=== PATIENT | female | born 1945 | race African-American/Black ===

== ENCOUNTER 2016-11-05 18:29 | Emergency (ER) | payer MEDICARE, MEDICAID ==
[2016-11-05] MEDS ORDERED: ACETAZOLAMIDE SODIUM INJ 500 MG VIAL IV ONE (18:50)
--- NOTE | 2016-11-05 19:17 | ER Document Report ---
ED Medical Screen (RME) - General Stated Complaint: EYE ISSUE/PHYSICIAN REFERRED FOR IV FLUID Time seen by provider: 19:12 Mode of Arrival: Wheelchair Information source: Patient Notes: 71-year-old female was found to have intraocular pressure of 58 in the right eye by dr. Garcia today and is unable to see out of the eye. Dr. Garcia sent to the emergency room for Diamox 500 mg IV. He wants the pressure measured 45 minutes later and it is less than 30 she can follow-up in the office in the morning if it's greater than 30 she needs to be transferred to [facility]. Drops were started at 5 pm today which did not help. Spoke with Reji rocky chu who said that she does not need an immediate bed to put her as pavel level 2. I have greeted and performed a rapid initial assessment of this patient. A comprehensive ED assessment, evaluation of the patient, analysis of test results , and completion of the medical decision making process will be conducted by additional ED providers. - Related Data Allergies/Adverse Reactions: Iodine and Iodide Containing Produc Allergy (Verified 11/05/16 19:13) Physical Exam - Vital signs Vitals: Temp Pulse Resp BP Pulse Ox 98.0 F 66 16 124/65 97 11/05/16 18:58 11/05/16 18:58 11/05/16 18:58 11/05/16 18:58 11/05/16 18:58 Course - Vital Signs Vital signs: Temp Pulse Resp BP Pulse Ox 98.0 F 66 16 124/65 97 11/05/16 18:58 11/05/16 18:58 11/05/16 18:58 11/05/16 18:58 11/05/16 18:58
--- NOTE | 2016-11-05 20:19 | ER Document Report ---
ED Eye Complaint - General Chief Complaint: Eye Problem Stated Complaint: EYE ISSUE/PHYSICIAN REFERRED FOR IV FLUID Time seen by provider: 20:19 Mode of Arrival: Wheelchair Information source: Patient TRAVEL OUTSIDE OF THE U.S. IN LAST 30 DAYS: No - HPI Patient complains to provider of: decreased vision in right eye Onset: Last week Eye location: Right Injury: No Quality of pain: Pressure Severity: Mild Pain Level: 2 Associated symptoms: Decreased vision Notes: Patient is a 71-year-old female who was sent to the emergency room by claim processing specialist for decreased vision in right eye that's been worsening over the past week, patient was evaluated at an urgent care and recommended to go to the emergency room proximally one week ago, however she waited to go see the claim processing specialist in the office today, who sent her to the emergency room requesting that she received 500 mg of IV Diamox, and have her intraocular pressures repeated approximate 45 minutes after receiving this, as her intraocular pressures are 58 in his office, he was tried to place eyedrops and patient's eye to bring the pressure down but that has not helped, patient does report decreased vision in the right eye, stating that she can see shadows only - Related Data Allergies/Adverse Reactions: Iodine and Iodide Containing Produc Allergy (Verified 11/05/16 19:13) Past Medical History - General Information source: Patient - Social History Smoking Status: Current Every Day Smoker Chew tobacco use (# tins/day): No Frequency of alcohol use: None Drug Abuse: None Family History: Reviewed & Not Pertinent Patient has suicidal ideation: No Patient has homicidal ideation: No Renal/ Medical History: Denies: Hx Peritoneal Dialysis Review of Systems - Review of Systems Constitutional: No symptoms reported EENT: See HPI Cardiovascular: No symptoms reported Respiratory: No symptoms reported Gastrointestinal: No symptoms reported Genitourinary: No symptoms reported Female Genitourinary: No symptoms reported Musculoskeletal: No symptoms reported Skin: No symptoms reported Hematologic/Lymphatic: No symptoms reported Neurological/Psychological: No symptoms reported -: Yes All other systems reviewed and negative Physical Exam - Vital signs Vitals: Temp Pulse Resp BP Pulse Ox 98.0 F 66 16 124/65 97 11/05/16 18:58 11/05/16 18:58 11/05/16 18:58 11/05/16 18:58 11/05/16 18:58 Interpretation: Normal - General General appearance: Appears well In distress: None - HEENT Head: Normocephalic, Atraumatic Eyes: Other - Patient with bilateral cataracts, decreased vision in the right eye, stating she can only see shadows, is unable to count fingers approximately 1 foot from her face Extraocular movements intact: Yes Eyelashes: Normal Notes: - General General appearance: Appears well, Alert In distress: None - HEENT Head: Normocephalic, Atraumatic Extraocular movements intact: Yes Eyelashes: Normal Pupils: PERRL - Respiratory Respiratory status: No respiratory distress - Cardiovascular Rhythm: Regular - Abdominal Inspection: Normal - Back Back: Normal - Extremities General upper extremity: Normal inspection General lower extremity: Normal inspection - Neurological Neuro grossly intact: Yes Orientation: AAOx4 [place] Coma Scale Eye Opening: Spontaneous [place] Coma Scale Verbal: Oriented Shelia Coma Scale Motor: Obeys Commands [place] Coma Scale Total: 15 - Psychological Associated symptoms: Normal affect, Normal mood - Skin Skin Temperature: Warm Skin Moisture: Dry Skin Color: Normal Course - Re-evaluation Re-evalutation: 11/05/16 22:55 Patient reports feeling much better, her vision has actually improved she was able to count fingers that were approximate 1 foot from her face, intraocular pressures were measured using a Se-Pen and now measures 16, 17, 16 on 3 separate measurements, I placed a call back to the claim processing specialist, Dr. Lopez who would like patient to follow-up with him in the office first thing in the morning at 9 AM, place the drops in her eye one more time tonight and one more time in the morning, this plan was discussed with patient at bedside who acknowledges understanding and agreement - Vital Signs Vital signs: Temp Pulse Resp BP Pulse Ox 98.5 F 68 16 125/65 98 11/05/16 23:57 11/05/16 23:57 11/05/16 23:57 11/05/16 23:57 11/05/16 23:57 Discharge - Discharge Clinical Impression: Pain, eye, right Condition: Stable Disposition: HOME, SELF-CARE Instructions: Eyedrop Use ([facility]) Additional Instructions: Follow-up with the claim processing specialist, Dr. Garcia at 9:00 in the morning. He is expecting you in his office. He recommend to put the eyedrops and your eye one more time tonight and one more time in the morning prior to seeing him. Return to the emergency room immediately if symptoms worsen or any additional concerns. Referrals: ALESHA THOMAS MD [Primary Care Provider] - Follow up as needed
[2016-11-06] VITALS: BP 125/65
== END 2016-11-05 23:57 | disposition home or self-care (01) ==
LOC: ER 18:29
DX: H57.11 Ocular pain, right eye (principal); H26.9 Unspecified cataract; H54.61 Unqualified visual loss, right eye, normal vision left eye; F17.200 Nicotine dependence, unspecified, uncomplicated
CPT/HCPCS: 99283; 96374; J1120

== ENCOUNTER 2016-12-20 09:54 | Day surgery (SDC) | payer MEDICARE, MEDICAID ==
[~2016-12-20 09:54] MED LIST: BUPIVACAINE HCL 0.75% INJ/PF (7.5 MG/1 ML) 10 ML SDV ONE; CHONDR SU A NA/HYALUR INTRAOC KIT (SURGICARE) ONE; HYALURONIDASE INJ 150 UNIT/1 ML VIAL ONE; KETOROLAC TROMETHAMINE 0.45% 4 DROP/0.4 ML DROPERETTE OS PRN; LIDOCAINE 2% INJ-PF (20 MG/ML) 10 ML AMPUL ONE; PHENYLEPHRINE/KETOROLAC 1%-0.3% 4 ML VIAL ONE; TOBRAMYCIN SULFATE/DEXAMETH OPH OINTMENT 3.5 GM ONE
[2016-12-20] MEDS: TETRACAINE HCL 0.5% OPH SOLN 2 ML OS PRN ×3 (10:20→11:08)
[2016-12-20] MEDS: BESIFLOXACIN HCL 0.6% OPH SUSP 5 ML BOTTLE OS PRN ×3 (10:21→11:51)
[2016-12-20] MEDS: CYCLOPENTOLATE 0.2%/PHENYLEPHRINE 1% OPH SOLN 2 ML OS PRN ×3 (10:21→10:45)
[2016-12-20] MEDS: TROPICAMIDE 1% OPH SOLN 3 ML OS PRN ×3 (10:21→10:45)
[2016-12-20] MEDS ORDERED: TRYPAN BLUE 0.06 % OPH SOLN 0.5 ML DISP.SYRIN ONE (10:49)
[2016-12-20] MEDS ORDERED: FENTANYL CITRATE INJ/PF 100 MCG/2 ML AMPUL ONE (10:53)
[2016-12-20] MEDS ORDERED: MIDAZOLAM 2 MG/2 ML INJ ONE (10:53)
[2016-12-20] MEDS ORDERED: LIDOCAINE 2% INJ-PF (20 MG/ML) 10 ML AMPUL ONE (11:09)
[2016-12-20] MEDS ORDERED: CHONDR SU A NA/HYALUR SOD 0.5 ML DISP.SYRIN ONE (11:29)
--- NOTE | 2017-01-02 09:23 | [facility] OPERATIVE REPORT E ---
[facility] Operative Report NAME: ANN ROYAL AGE: 71Y DATE OF SURGERY: 12/20/2016 ROOM: PREOPERATIVE DIAGNOSIS: Mature cataract of left eye. POSTOPERATIVE DIAGNOSIS: Mature cataract of left eye. OPERATION: Complex cataract extraction with use of trypan blue dye due to density of lens and poor visualization of the anterior capsule. SURGEON: MARIANO MADRIGAL M.D. ANESTHESIA: Topical with retrobulbar block. PROCEDURE: After obtaining appropriate consent, the patient's left eye was prepped and draped in sterile fashion as well as the surgeon in a sterile manner and cataract surgery was started. First a paracentesis blade was used to make a small side-port incision. Viscoelastic was used to inflate the anterior chamber. Next a 2.4 mm incision was made with the paracentesis blade. A continuous capsulorrhexis incision was made using a cystotome and Utrata forceps. Following this hydrodissection was carried out to make the lens fully loose and mobile and it was rotated 90 degrees. Following this, a udihki-xgx-jvqtcom technique was used to phacoemulsify the lens with a CDE of 45.67. The remaining cortex was removed with irrigation/aspiration. Provisc was instilled into the capsular bag to inflate the bag. A SN60WF, 19.0 diopter lens was placed. The remaining viscoelastic material was removed with irrigation/aspiration. Following this, a 10-0 nylon suture was used to close the incision and it was found to be watertight. Vigamox was instilled in the eye and a protective shield was placed over the eye. The patient returned to the postoperative recovery in stable condition. Prior to making the capsulorrhexis, trypan blue dye was used to stain the anterior capsule due to poor visualization of the capsule. DICTATING PHYSICIAN: MARIANO MADRIGAL M.D. [id number] PHY#: [id number] ID: [id number] JOB#: [id number] ACCT: [id number] cc:MARIANO MADRIGAL M.D. >
--- NOTE | 2017-01-02 09:23 | [facility] DISCHARGE SUMMARY E ---
[facility] Discharge Summary NAME: ANN ROYAL AGE: 71Y ADMITTED: 12/20/2016 DISCHARGED: 12/20/2016 HOSPITAL COURSE: This is a 71-year-old female who underwent cataract extraction, complex, of the left eye. DIAGNOSIS: Mature cataract, left eye with use of trypan blue dye due to poor visualization due to density of the lens. INDICATIONS: Patient underwent surgery because she was having difficulty seeing distance and up close for reading or watching TV. DISCHARGE INSTRUCTIONS: She should be on a regular diet. No bending at her waist. No heavy lifting. She should use her Besivance, Ilevro, and Durezol at 3 p.m. and 8 p.m. and sleep with a rigid shield. I will see her for her 1 day postoperative tomorrow. DICTATING PHYSICIAN: MARIANO MADRIGAL M.D. [id number] PHY#: [id number] ID: [id number] JOB#: [id number] ACCT: [id number] cc:MARIANO MADRIGAL M.D. >
== END 2016-12-20 12:41 | disposition home or self-care (01) ==
LOC: SC 09:54
PROVIDERS: ATTEND Internal Medicine
PROC: 08RK3JZ Replacement of Left Lens with Synthetic Substitute, Percutaneous Approach (ICD-10-PCS; principal; 2016-12-20 11:00)
DX: H25.89 Other age-related cataract (principal); H40.89 Other specified glaucoma; H20.011 Primary iridocyclitis, right eye; E78.00 Pure hypercholesterolemia, unspecified; M19.90 Unspecified osteoarthritis, unspecified site; I10 Essential (primary) hypertension; I49.9 Cardiac arrhythmia, unspecified; F17.210 Nicotine dependence, cigarettes, uncomplicated; H53.033 Strabismic amblyopia, bilateral; G81.91 Hemiplegia, unspecified affecting right dominant side; Z91.041 Radiographic dye allergy status; Z79.82 Long term (current) use of aspirin
CPT/HCPCS: 66982; V2632; J2250; J3490 ×6; A9270; J3010; J3470; C9447; 142

== ENCOUNTER 2017-01-03 10:16 | Day surgery (SDC) | payer MEDICARE, MEDICAID ==
[~2017-01-03 10:16] MED LIST changes: -BUPIVACAINE HCL 0.75% INJ/PF (7.5 MG/1 ML) 10 ML SDV ONE; -CHONDR SU A NA/HYALUR INTRAOC KIT (SURGICARE) ONE; -HYALURONIDASE INJ 150 UNIT/1 ML VIAL ONE; +KETOROLAC TROMETHAMINE 0.45% 4 DROP/0.4 ML DROPERETTE OD PRN; -KETOROLAC TROMETHAMINE 0.45% 4 DROP/0.4 ML DROPERETTE OS PRN; -LIDOCAINE 2% INJ-PF (20 MG/ML) 10 ML AMPUL ONE; -PHENYLEPHRINE/KETOROLAC 1%-0.3% 4 ML VIAL ONE; -TOBRAMYCIN SULFATE/DEXAMETH OPH OINTMENT 3.5 GM ONE
[2017-01-03] MEDS ORDERED: TRYPAN BLUE 0.06 % OPH SOLN 0.5 ML DISP.SYRIN ONE (10:30)
[2017-01-03] MEDS ORDERED: LIDOCAINE 1% INJ-PF (10 MG/ML) 30 ML SDV ONE (10:31)
[2017-01-03] MEDS ORDERED: CHONDR SU A NA/HYALUR INTRAOC KIT (SURGICARE) ONE (10:31)
[2017-01-03] MEDS ORDERED: EPINEPHRINE INJ/PF 1 MG/1 ML AMPULE ONE (10:31)
[2017-01-03] MEDS: BESIFLOXACIN HCL 0.6% OPH SUSP 5 ML BOTTLE OD PRN ×4 (11:02→12:25)
[2017-01-03] MEDS: TROPICAMIDE 1% OPH SOLN 3 ML OD PRN ×3 (11:02→11:23)
[2017-01-03] MEDS: CYCLOPENTOLATE 0.2%/PHENYLEPHRINE 1% OPH SOLN 2 ML OD PRN ×3 (11:02→11:23)
[2017-01-03] MEDS: TETRACAINE HCL 0.5% OPH SOLN 2 ML OD PRN ×3 (11:03→11:49)
[2017-01-03] MEDS ORDERED: LIDOCAINE 2% INJ (20 MG/ML) 20 ML MDV ONE (11:08)
[2017-01-03] MEDS ORDERED: BUPIVACAINE HCL 0.75% INJ/PF (7.5 MG/1 ML) 10 ML SDV ONE (11:08)
[2017-01-03] MEDS ORDERED: HYALURONIDASE INJ 150 UNIT/1 ML VIAL ONE (11:08)
[2017-01-03] MEDS ORDERED: LIDOCAINE 2% INJ-PF (20 MG/ML) 10 ML AMPUL ONE ×2 (11:10→11:22)
[2017-01-03] MEDS ORDERED: MIDAZOLAM 2 MG/2 ML INJ ONE (11:22)
[2017-01-03] MEDS ORDERED: PROPOFOL INJ 200 MG/20 ML VIAL IV ONE (11:22)
[2017-01-03] MEDS: TOBRAMYCIN SULFATE/DEXAMETH OPH OINTMENT 3.5 GM ONE ×2 (12:25)
--- NOTE | 2017-01-03 20:02 | [facility] OPERATIVE REPORT E ---
[facility] Operative Report NAME: ANN ROYAL AGE: 71Y DATE OF SURGERY: 01/03/2017 ROOM: PREOPERATIVE DIAGNOSIS: MATURE CATARACT, RIGHT EYE. POSTOPERATIVE DIAGNOSIS: MATURE CATARACT, RIGHT EYE. OPERATION: Complex cataract extraction with use of intraocular lens implant and use of trypan blue dye due to poor visualization of the anterior capsule of the right eye. SURGEON: MARIANO MADRIGAL M.D. ANESTHESIA: Topical with retrobulbar block. PROCEDURE: After obtaining appropriate consent, the patient's right eye was prepped and draped in sterile fashion as well as the surgeon in a sterile manner and cataract surgery was started. First a paracentesis blade was used to make a small side-port incision. Viscoelastic was used to inflate the anterior chamber. Next a 2.4 mm incision was made with the paracentesis blade. A continuous capsulorrhexis incision was made using a cystotome and Utrata forceps. Following this hydrodissection was carried out to make the lens fully loose and mobile and it was rotated 90 degrees. Following this, a tetsqs-cgb-gzsaccl technique was used to phacoemulsify the lens with a CDE of 29.17. The remaining cortex was removed with irrigation/aspiration. Provisc was instilled into the capsular bag to inflate the bag. A SN60WF, 17.5 diopter lens was placed. The remaining viscoelastic material was removed with irrigation/aspiration. Following this, a 10-0 nylon suture was used to close the incision and it was found to be watertight. Vigamox was instilled in the eye and a protective shield was placed over the eye. The patient returned to the postoperative recovery in stable condition. Prior to making the capsulorrhexis, trypan blue dye was used to stain the anterior capsule due to density of the lens. DICTATING PHYSICIAN: MARIANO MADRIGAL M.D. [id number] PHY#: [id number] ID: [id number] JOB#: [id number] ACCT: [id number] cc:MARIANO MADRIGAL M.D. >
--- NOTE | 2017-01-03 20:08 | DISCHARGE SUMMARY E ---
Discharge Summary NAME: ANN ROYAL : 1945 AGE: 71Y ADMITTED: 01/03/2017 DISCHARGED: 01/03/2017 This is a 71-year-old female who underwent complex cataract extraction of the right eye. DIAGNOSIS: Mature cataract, right eye, requiring trypan blue dye. She underwent surgery because she was having difficulty recognizing people's faces or to see words on the TV. DISCHARGE INSTRUCTIONS: She is to be on a regular diet. No bending at her waist, no heavy lifting. She is to use Besivance, Ilevro, and Durezol at 3:00 p.m. and 8:00 p.m., and sleep with a rigid shield. I will see her for her 1-day postoperative tomorrow. DICTATING PHYSICIAN: MARIANO MADRIGAL M.D. [id number] PHY#: [id number] ID: [id number] JOB#: [id number] ACCT: [id number] cc:MARIANO MADRIGAL M.D. >
== END 2017-01-03 13:30 | disposition home or self-care (01) ==
LOC: SC 10:16
PROVIDERS: ATTEND Internal Medicine
PROC: 08RJ3JZ Replacement of Right Lens with Synthetic Substitute, Percutaneous Approach (ICD-10-PCS; principal; 2017-01-03 11:30)
DX: H25.89 Other age-related cataract (principal); H40.89 Other specified glaucoma; Z96.1 Presence of intraocular lens; I10 Essential (primary) hypertension; I49.9 Cardiac arrhythmia, unspecified; G81.91 Hemiplegia, unspecified affecting right dominant side; Z79.82 Long term (current) use of aspirin; Z79.899 Other long term (current) drug therapy
CPT/HCPCS: 66982; V2632; J2250; J3490 ×6; A9270; J0171; J2704; J3470; 142

== ENCOUNTER 2020-04-18 23:04 | Inpatient (IN) | payer MEDICARE, MEDICAID ==
[2020-04-19] MEDS ORDERED: ONDANSETRON HCL INJ/PF 4 MG/2 ML SDV IV ONE (00:04)
[2020-04-19] MEDS ORDERED: NORMAL SALINE 1000 ML 1,000 ML IV ONE (00:05)
--- NOTE | 2020-04-19 00:05 | ER Document Report ---
ED Medical Screen (RME) - General Chief Complaint: Abdominal Pain Stated Complaint: CHEST PAIN, DIFFICULTY BREATHING, DISTENDED STOMAC Time Seen by Provider: 04/19/20 00:02 Primary Care Provider: MARI WALLIS MD [Primary Care Provider] - Follow up as needed Mode of Arrival: Wheelchair Information source: Patient Notes: 75-year-old female presenting to the emergency department chief complaint of abdominal swelling, vomiting, constipation. Patient thinks she has a bowel obstruction. She appears jaundiced. She is actively vomiting in triage. She will be taken immediately to a room for full evaluation. I have greeted and performed a rapid initial assessment of this patient. A comprehensive ED assessment and evaluation of the patient, analysis of test results and completion of the medical decision making process will be conducted by additional ED providers. I have specifically instructed the patient or family members with the patient to immediately return to any nursing staff should anything change in the patient's condition or with their chief complaint. TRAVEL OUTSIDE OF THE U.S[place] IN LAST 30 DAYS: No - Related Data Allergies/Adverse Reactions: Iodine and Iodide Containing Produc Allergy (Verified 01/03/17 11:01) Past Medical History - Past Medical History Cardiac Medical History: Reports: Hx Hypertension Denies: Hx Heart Attack Pulmonary Medical History: Denies: Hx Asthma Neurological Medical History: Denies: Hx Cerebrovascular Accident, Hx Seizures Renal/ Medical History: Denies: Hx Peritoneal Dialysis GI Medical History: Denies: Hx Hepatitis, Hx Hiatal Hernia, Hx Ulcer Infectious Medical History: Denies: Hx Hepatitis Past Surgical History: Reports: Hx Hysterectomy. Denies: Hx Mastectomy, Hx Open Heart Surgery, Hx Pacemaker Physical Exam - Vital signs Vitals: Temp Pulse Resp BP Pulse Ox 97.2 F 105 H 20 151/75 H 96 04/18/20 23:46 04/18/20 23:46 04/18/20 23:46 04/18/20 23:46 04/18/20 23:46 Course - Vital Signs Vital signs: Temp Pulse Resp BP Pulse Ox 97.2 F 105 H 20 151/75 H 96 04/18/20 23:46 04/18/20 23:46 04/18/20 23:46 04/18/20 23:46 04/18/20 23:46 Doctor's Discharge - Discharge Referrals: OSUNKOYA,MARI, MD [Primary Care Provider] - Follow up as needed
[2020-04-19 00:48] LABS: ABSOLUTE LYMPHOCYTES (AUTO) 1.5 10^3/uL (0.5-4.7); ABSOLUTE NEUT (AUTO) 5.2 10^3/uL (1.7-8.2); BASOPHILS % (AUTO) 0.6 % (0-2); EOSINOPHILS % (AUTO) 0.1 % (0-6); HEMATOCRIT 47.6 % (36.0-47.0); HEMOGLOBIN 16.8 g/dL (12.0-15.5); LYMPHOCYTES % (AUTO) 19.5 % (13-45); MEAN CORPUSCULAR HGB CONC 35.2 g/dL (32.0-36.0); MEAN CORPUSCULAR VOLUME 91 fl (80-97); MONOCYTES % (AUTO) 12.4 % (3-13); PLATELET COUNT 289 10^3/uL (150-450); RED BLOOD COUNT 5.24 10^6/uL (3.72-5.28); RED CELL DISTRIBUTION WIDTH 19.3 % (11.5-14.0); SEGMENTED NEUTROPHILS % (AUTO) 67.4 % (42-78); TOTAL CELLS COUNTED % (AUTO) 100 %; WHITE BLOOD COUNT 7.8 10^3/uL (4.0-10.5)
--- NOTE | 2020-04-19 00:48 | ER Document Report ---
ED GI/ - General Chief Complaint: Abdominal Pain Stated Complaint: CHEST PAIN, DIFFICULTY BREATHING, DISTENDED STOMAC Time Seen by Provider: 04/19/20 00:02 Primary Care Provider: MARI WALLIS MD [Primary Care Provider] - Follow up as needed Mode of Arrival: Wheelchair Information source: Patient Notes: 04/19/20 00:04 - ED [facility]: [id number] : 1945 Patient Age: 75 pt reports abd has been swollen for 1 week. states hasn't had a BM in a few days. pt vomited x1 dk colored emesis. she states the pain is better after she vomited. ED Medical Screen ([facility] notes - General Chief Complaint: Abdominal Pain Stated Complaint: CHEST PAIN, DIFFICULTY BREATHING, DISTENDED STOMAC Time Seen by Provider: 04/19/20 00:02 Primary Care Provider: MARI WALLIS MD [Primary Care Provider] - Follow up as needed Mode of Arrival: Wheelchair Information source: Patient Notes: 75-year-old female presenting to the emergency department chief complaint of abdominal swelling, vomiting, constipation. Patient thinks she has a bowel obstruction. She appears jaundiced. She is actively vomiting in triage. She will be taken immediately to a room for full evaluation. my notes 75-year-old female arrives POV with chief complaint of abdominal pain vomiting. Patient reports she has had some vomiting today. She did keep down some water and cranberry juice. She also was able to eat some chicken noodle soup by [employer]. She reports she has had some diffuse abdominal pain for 1 week. 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 She says she has not had a bowel movement in a few days as well. She speaks with slow and understandable speech. She is edentulous as well. TRAVEL OUTSIDE OF THE [place] IN LAST 30 DAYS: No - Related Data Allergies/Adverse Reactions: Iodine and Iodide Containing Produc Allergy (Verified 01/03/17 11:01) Past Medical History - General Information source: Patient - Social History Smoking Status: Never Smoker Family History: Reviewed & Not Pertinent Patient has homicidal ideation: No - Past Medical History Cardiac Medical History: Reports: Hx Hypertension Denies: Hx Heart Attack Pulmonary Medical History: Denies: Hx Asthma Neurological Medical History: Denies: Hx Cerebrovascular Accident, Hx Seizures Renal/ Medical History: Denies: Hx Peritoneal Dialysis GI Medical History: Denies: Hx Hepatitis, Hx Hiatal Hernia, Hx Ulcer Infectious Medical History: Denies: Hx Hepatitis Past Surgical History: Reports: Hx Hysterectomy. Denies: Hx Mastectomy, Hx Open Heart Surgery, Hx Pacemaker Physical Exam - Vital signs Vitals: Temp Pulse Resp BP Pulse Ox 97.2 F 105 H 20 151/75 H 96 04/18/20 23:46 04/18/20 23:46 04/18/20 23:46 04/18/20 23:46 04/18/20 23:46 Interpretation: Hypertensive, Tachycardic - HEENT Head: Normocephalic, Atraumatic Eyes: Pale conjunctiva, Scleral icterus Extraocular movements intact: Yes Pupils: PERRL Mouth/Lips: Other - Edentulous Mucous membranes: Dry Pharynx: Normal Neck: Normal - Respiratory Respiratory status: No respiratory distress Chest status: Nontender Breath sounds: Normal Chest palpation: Normal - Cardiovascular Rhythm: Tachycardia - Abdominal Inspection: Normal Distension: No distension Bowel sounds: Hyperactive Tenderness: Tender - Periumbilical Organomegaly: No organomegaly - Rectal Hemorrhoids: Other - deferred - Genitourinary Bimanuel exam: Other - deferred - Back Back: Normal - Extremities General upper extremity: Normal inspection General lower extremity: Tender - RLE - Neurological Neuro grossly intact: Yes Cognition: Normal Shelia Coma Scale Eye Opening: Spontaneous Shelia Coma Scale Verbal: Oriented [place] Coma Scale Motor: Obeys Commands [place] Coma Scale Total: 15 Speech: Dysarthria Cranial nerves: Normal Cerebellar coordination: Other - Unable to assess because of chronic right lower extremity neuropathy Motor strength normal: LUE, RUE Additional motor exam normals: Equal computer networker, Other - Actually patient refused to shake or squeeze my hand because of coronavirus. She put her hands up and said "we will be extra cautious." - Psychological Associated symptoms: Flat affect - Skin Skin Temperature: Warm Skin Moisture: Dry Course - Vital Signs Vital signs: Temp Pulse Resp BP Pulse Ox 97.2 F 105 H 13 115/57 L 96 04/18/20 23:46 04/18/20 23:46 04/19/20 02:01 04/19/20 02:01 04/19/20 02:01 - Laboratory Result Diagrams: 04/19/20 00:41 04/19/20 00:41 Laboratory results interpreted by me: 04/19/20 04/19/20 00:41 00:41 Hgb 16.8 H Hct 47.6 H RDW 19.3 H Sodium 133.8 L Chloride 97 L BUN 28 H Est GFR (MDRD) Non-Af 51 L Glucose 54 L Total Bilirubin 14.6 H Direct Bilirubin 12.6 H AST 467 H ALT 94 H Alkaline Phosphatase 621 H Albumin 2.9 L - Diagnostic Test Radiology reviewed: Reports reviewed - CT scan of the abdomen pelvis reveals lung metastasis basilarly with liver masses as well as ascites. - EKG Interpretation by Me EKG shows normal: Sinus rhythm Rate: Tachycardia Rhythm: NSR - Sinus tachycardia at [address] elevation no ST depression no T wave elevation no T wave depression and axis within normal limits Critical Care Note - Critical Care Note Comments: I discussed case with Dr. Wallis and he asked when he or son saw the patient last and they advised "over [address] Maria D monique advises patient to go to hospitalist. Dr. Josep Warren was called at [phone] and he advises he will see the patient shortly. I discussed case with Earnestsin [place] who appeared to understand much more appropriately than the patient herself. She is pleasantly in a stoic state mildly confused. Discharge - Discharge Clinical Impression: Vomiting alone, Liver disease Abdominal pain Qualifiers: Abdominal location: unspecified location Qualified Code(s): R10.9 - Unspecified abdominal pain Lung metastases Qualifiers: Laterality: unspecified laterality Qualified Code(s): C78.00 - Secondary malignant neoplasm of unspecified lung Ascites Qualifiers: Ascites type: other type Qualified Code(s): R18.8 - Other ascites Condition: Good Disposition: ADMITTED INPATIENT Admitting Provider: Kelvin (Hospitalist) Unit Admitted: Medical Floor Referrals: MARI WALLIS MD [Primary Care Provider] - Follow up as needed
[2020-04-19 01:20] LABS: ALBUMIN 2.9 g/dL (3.5-5.0); ALKALINE PHOSPHATASE 621 U/L (38-126); ANION GAP 15 (5-19); ASPARTATE AMINO TRANSFERASE 467 U/L (14-36); BILIRUBIN,DIRECT 12.6 mg/dL (0.0-0.4); BILIRUBIN,TOTAL 14.6 mg/dL (0.2-1.3); BLOOD UREA NITROGEN 28 mg/dL (7-20); CALCIUM 9.8 mg/dL (8.4-10.2); CARBON DIOXIDE 22 mmol/L (22-30); CHLORIDE 97 mmol/L (98-107); POTASSIUM 4.8 mmol/L (3.6-5.0); TOTAL PROTEIN 7.8 g/dL (6.3-8.2)
[2020-04-19 01:30] LABS: GLUCOSE 54 mg/dL (75-110)
--- NOTE | 2020-04-19 01:35 | RADIOLOGY REPORT (SQ) ---
EXAM DESCRIPTION: XR ABDOMEN 1 VIEW (KUB) COMPLETED DATE/TME: 04/19/2020 00:03 CLINICAL HISTORY: 75 years, Female, ABD PAIN, VOMITING, EVAL FOR OBSTRUCTION COMPARISON: None. NUMBER OF VIEWS: 2 TECHNIQUE: AP views of the abdomen LIMITATIONS: None. FINDINGS: Limited exam due to patient positioning. The bowel gas pattern is nonspecific. Osteopenia. Surgical clips in the right upper quadrant. Calcifications in the right upper quadrant are nonspecific but may be renal in origin. The largest measures 8.6 mm. Evaluation for free air limited on a supine view. A few nondilated air-filled loops of small bowel may reflect mild ileus. IMPRESSION: Nonspecific bowel gas pattern. A few nondilated air-filled loops of small bowel may reflect mild ileus. Questionable right renal calculi. copyright 2011 [employer]- All Rights Reserved
--- NOTE | 2020-04-19 02:16 | RADIOLOGY REPORT (SQ) ---
CT ABDOMEN AND PELVIS WITHOUT INTRAVENOUS CONTRAST: 04/19/2020 1:11 AM CDT HISTORY: 75-year old with nausea, vomiting, abdominal pain. COMPARISON: None available TECHNIQUE: Axial contiguous images were obtained from the lung bases to the proximal femurs without intravenous contrast administered. Sagittal and coronal reconstructions were also obtained and reviewed. This exam was performed according to our departmental dose-optimization program, which includes automated exposure control, adjustment of the mA and/or KV according to the patient's size and/or use of iterative reconstruction technique. FINDINGS: There are moderate centrilobular emphysematous changes present. There are tiny 4-5 mm nodules within the lung bases. These are best seen on image three and five of 97 and seen bilaterally. Moderate centrilobular emphysematous changes are present. There are groundglass changes within the lung bases. The main pulmonary artery is enlarged and measures at least 3 cm in transverse dimension. Coronary artery calcifications are seen. Evaluation of the solid organs is limited by the lack of intravenous contrast. The liver is heterogeneous with suggestion of multiple masses. These are ill-defined, particularly with the lack of intravenous contrast. The gallbladder is surgically absent. The spleen and pancreas are normal in contour. The bilateral adrenal glands appear unremarkable. Both kidneys demonstrate no evidence of hydronephrosis. There are punctate bilateral renal calculi, some of which are likely renal vascular. The largest is seen measuring up to 6 mm. The urinary bladder is mildly distended, and appears grossly unremarkable. The uterus is not visualized and is likely surgically absent. The stomach is not well distended. The small bowel loops appear unremarkable. No pericolonic inflammatory stranding is seen. There are multiple diverticula seen within the sigmoid and descending colon, without evidence to suggest diverticulitis. The appendix appears unremarkable. There is no evidence of pneumoperitoneum. There is a small amount of free intraperitoneal fluid within the abdomen and pelvis. The aorta and IVC appear normal in size. There is moderate atherosclerotic calcification of aorta and into the iliac arteries. No significantly enlarged lymph nodes are seen in the abdomen or pelvis. Review of the bone show no evidence of any suspicious lytic or blastic lesions. Multilevel degenerative changes are seen within the lumbar spine. There is a probable lipoma or fatty atrophy seen at the proximal right thigh musculature. There is a mild scoliotic curvature of the spine, convex to the right side. IMPRESSION: The liver has a heterogeneous appearance with suggestion of multiple masses possibly present. Further evaluation with postcontrast imaging is recommended. There are multiple nodules within the lung bases which may represent evidence of metastatic disease. There is a moderate amount of free intraperitoneal fluid suggestive of ascites. Bilateral renal calcifications are present.
[2020-04-19] MEDS ORDERED: ONDANSETRON HCL INJ/PF 4 MG/2 ML SDV IV PRN (03:49)
--- NOTE | 2020-04-19 04:04 | PDOC H&P ---
History of Present Illness Admission Date/PCP: 04/19/20 03:29 MARI WALLIS History of Present Illness: ANN ROYAL is a 75 year old female who used to see Dr. Wallis but has not been to see him in over 3 years. She presents with progressive weight loss, decreased appetite, and progressive weakness. She has had some swelling in her belly that is increased over the past several days. She is not had a good bowel movement in several days and her son thought maybe she was constipated. She had profound scleral icterus on examination. Her bilirubin was substantially elevated and her transaminases were elevated as well, as was her alkaline phosphatase. Scan of her abdomen and pelvis showed multiple liver masses, ascites, and some possible bilateral lower lung nodules. She has no prior history of cancer. She does not smoke. She has not been to a doctor in several years because she says she had not been sick. Past Medical History Cardiac Medical History: Reports: Hypertension Denies: Myocardial Infarction Pulmonary Medical History: Denies: Asthma Neurological Medical History: Denies: Seizures GI Medical History: Denies: Hepatitis, Hiatal Hernia Hematology: Reports: Anemia Denies: Sickle Cell Disease Past Surgical History Past Surgical History: Reports: Hysterectomy Denies: Amputation, Mastectomy, Pacemaker Social History Smoking Status: Never Smoker Family History Family History: Reviewed & Not Pertinent Parental Family History Reviewed: Yes Children Family History Reviewed: Yes Sibling(s) Family History Reviewed.: Yes Medication/Allergy Home Medications: Amlodipine Besylate 5 mg PO Q12H 12/20/16 Aspirin [Aspirin 81 mg Chewable Tablet] 81 mg PO DAILY 12/20/16 Besifloxacin HCl [Besivance 0.6% Oph Susp 5 ml] 1 drop OP TID 12/20/16 Brinzolamide/Brimonidine Tart [Simbrinza 1%-0.2% Eye Drops] 1 drop OP TID 12/20/16 Difluprednate [Durezol] 1 drop OP ASDIR PRN 12/20/16 Nepafenac [Ilevro] 1 drop OP ASDIR PRN 12/20/16 Allergies/Adverse Reactions: Iodine and Iodide Containing Produc Allergy (Verified 01/03/17 11:01) Review of Systems All systems: reviewed and no additional remarkable complaints except as stated - All systems were reviewed with the help of her son and were negative except as noted in the HPI Physical Exam Vital Signs: Temp Pulse Resp BP Pulse Ox 97.2 F 105 H 26 H 97/54 L 97 04/18/20 23:46 04/18/20 23:46 04/19/20 03:02 04/19/20 03:02 04/19/20 03:02 Intake & Output 04/17/20 04/18/20 04/19/20 06:59 06:59 06:59 Intake Total 1000 Balance 1000 Weight 53.2 kg General appearance: PRESENT: no acute distress, cooperative, disheveled Head exam: PRESENT: atraumatic, normocephalic Eye exam: PRESENT: EOMI, PERRLA, scleral icterus. ABSENT: conjunctival injection, nystagmus Ear exam: PRESENT: normal external ear exam Mouth exam: PRESENT: dry mucosa, neck supple Teeth exam: PRESENT: edentulous Throat exam: ABSENT: post pharyngeal erythema Neck exam: PRESENT: full ROM. ABSENT: carotid bruit, JVD, lymphadenopathy, meningismus, tenderness, thyromegaly Respiratory exam: PRESENT: clear to auscultation sophia, symmetrical, unlabored. ABSENT: accessory muscle use, chest wall tenderness, crackles, prolonged expiratory phas, rhonchi, tachypnea, wheezes Cardiovascular exam: PRESENT: RRR, +S1, +S2 Pulses: PRESENT: normal carotid pulses Vascular exam: PRESENT: normal capillary refill GI/Abdominal exam: PRESENT: ascites, distended, normal bowel sounds, soft. ABSENT: guarding, rebound, tenderness Extremities exam: PRESENT: clubbing - Of the nails on her hands. ABSENT: pedal edema Musculoskeletal exam: PRESENT: normal inspection. ABSENT: deformity Neurological exam: PRESENT: awake, oriented to person, oriented to place, oriented to situation, CN II-XII grossly intact. ABSENT: motor sensory deficit - She had polio and has some chronic weakness of her right leg Psychiatric exam: PRESENT: flat affect Skin exam: PRESENT: dry, jaundice, warm Results Laboratory Results: 04/19/20 00:41 04/19/20 00:41 04/19/20 04/19/20 00:41 00:41 WBC 7.8 RBC 5.24 Hgb 16.8 H Hct 47.6 H MCV 91 MCH 32.0 MCHC 35.2 RDW 19.3 H Plt Count 289 Seg Neutrophils % 67.4 Sodium 133.8 L Potassium 4.8 Chloride 97 L Carbon Dioxide 22 Anion Gap 15 BUN 28 H Creatinine 1.05 Est GFR ( Amer) > 60 Glucose 54 L Calcium 9.8 Total Bilirubin 14.6 H AST 467 H Alkaline Phosphatase 621 H Total Protein 7.8 Albumin 2.9 L Lipase 128.3 Impressions: KUB X-Ray 04/19/20 00:03 IMPRESSION: Nonspecific bowel gas pattern. A few nondilated air-filled loops of small bowel may reflect mild ileus. Questionable right renal calculi. copyright 2011 [employer]- All Rights Reserved Abdomen/Pelvis CT 04/19/20 01:27 IMPRESSION: The liver has a heterogeneous appearance with suggestion of multiple masses possibly present. Further evaluation with postcontrast imaging is recommended. There are multiple nodules within the lung bases which may represent evidence of metastatic disease. There is a moderate amount of free intraperitoneal fluid suggestive of ascites. Bilateral renal calcifications are present. Assessment and Plan - Diagnosis (1) Mass of multiple sites of liver Is this a current diagnosis for this admission?: Yes Plan: Her abdomen and pelvis is been scanned and there are numerous masses in the liver. This is almost certainly the source of her ascites. We will do a metastatic work-up to include a CT scan of the chest and head, as well as paracentesis with fluid studies including cytology. After the scans we will look to see if there is a good lesion to biopsy. Dr. Davis has already been consulted in the ER and will be seeing the patient in the hospital. (2) Multiple lung nodules Is this a current diagnosis for this admission?: Yes Plan: As previously noted (3) Hyperbilirubinemia Is this a current diagnosis for this admission?: Yes Plan: Most likely due to all the masses in her liver. Will consider further imaging to see if she has has an obstructive process pending her clinical course after paracentesis to remove any compression and some IV fluids. Concern for acute liver failure, coagulation studies have been ordered as well as ammonia level. (4) Ascites Qualifiers: Ascites type: malignant Qualified Code(s): R18.0 - Malignant ascites Is this a current diagnosis for this admission?: Yes Plan: Paracentesis with fluid studies as previously noted - Time Time Spent with patient: 35 or more minutes Anticipated Discharge Disposition: To be determined Anticipated Discharge Timeframe: To be determined - Inpatient Certification Based on my medical assessment, after consideration of the patient's comorbidities, presenting symptoms, or acuity I expect that the services needed warrant INPATIENT care.: Yes I certify that my determination is in accordance with my understanding of Medicare's requirements for reasonable and necessary INPATIENT services [42 CFR 412.3e].: Yes Medical Necessity: Need Close Monitoring Due to Risk of Patient Decompensation, Need For IV Fluids, Need For Continuous Telemetry Monitoring, Need for Neurological Checks, Risk of Complication if Not Cared For in Hospital, Risk of Diagnosis Which Will Require Inpatient Eval/Care/Monitoring
[2020-04-19 05:30] LABS: INTERNATIONAL RATION (INR) 2.29; PARTIAL THROMBOPLASTIN TIME 43.8 SEC (23.5-35.8); PROTHROMBIN TIME 25.3 SEC (11.4-15.4)
[2020-04-19] MEDS ORDERED: HEPARIN SOD (PORCINE) 5,000 UNIT/ML 1 ML VIAL SUBCUT SCH (06:00)
[2020-04-19] MEDS: RINGERS SOLUTION,LACTATED 1,000 ML IV PRN (06:21)
--- NOTE | 2020-04-19 08:58 | PDOC CONSULTATION ---
Consultation Consult Date: 04/19/20 Provider Consulted: CINTHIA LORA Consult reason:: Hematology/Oncology consultation was requested for patient with ascites and CT scan consistent with metastatic cancer. History of Present Illness Admission Date/PCP: 04/19/20 03:29 MARI WALILS History of Present Illness: ANN ROYAL is a 75 year old female who was followed by Dr. Wallis, but states that she has not needed a doctor for several years. She states that she had a gradual weight loss and "was sick" for the past few weeks. Her stomach started to bloat and then she developed pain which started in her side and radiated to her back and is now going up her neck. She presented to the ED w here CT abdomen found lesions in the liver. She also has elevated bilirubin, transaminases and INR. She is currently NPO for paracentesis to be performed this morning. Past Medical History Cardiac Medical History: Reports: Hypertension Denies: Myocardial Infarction Pulmonary Medical History: Denies: Asthma Neurological Medical History: Denies: Seizures GI Medical History: Denies: Hepatitis, Hiatal Hernia Psychiatric Medical History: Denies: Depression Hematology: Reports: Anemia Denies: Sickle Cell Disease Infectious Medical History: Reports: Other Infectious History Note: Polio age 6. Past Surgical History Past Surgical History: Reports: Hysterectomy, Other - Eye surgery 2 years ago. Denies: Amputation, Mastectomy, Pacemaker Social History Information Source: Patient Smoking Status: Former Smoker Number of Years Smokin Last Time Smoked: 2017 Frequency of Alcohol Use: None Hx Recreational Drug Use: No Drugs: None Past Social History Note: She has 8 children. Family History Parental Family History Reviewed: Yes - Mother with DM Children Family History Reviewed: No Sibling(s) Family History Reviewed.: Yes - Sister with DM. Medication/Allergy Home Medications: Amlodipine Besylate 5 mg PO Q12H 12/20/16 Aspirin [Aspirin 81 mg Chewable Tablet] 81 mg PO DAILY 12/20/16 Besifloxacin HCl [Besivance 0.6% Oph Susp 5 ml] 1 drop OP TID 12/20/16 Brinzolamide/Brimonidine Tart [Simbrinza 1%-0.2% Eye Drops] 1 drop OP TID 12/20/16 Difluprednate [Durezol] 1 drop OP ASDIR PRN 12/20/16 Nepafenac [Ilevro] 1 drop OP ASDIR PRN 12/20/16 Allergies/Adverse Reactions: Iodine and Iodide Containing Produc Allergy (Verified 01/03/17 11:01) Review of Systems Constitutional: ABSENT: fever(s), headache(s) Eyes: PRESENT: visual disturbances Ears: ABSENT: hearing changes Nose, Mouth, and Throat: ABSENT: sore throat Respiratory: ABSENT: cough, dyspnea Gastrointestinal: PRESENT: abdominal pain, bloating Genitourinary: ABSENT: dysuria Integumentary: ABSENT: rash Neurological: PRESENT: dizziness, vertigo Hematologic/Lymphatic: PRESENT: easy bleeding Physical Exam Vital Signs: Temp Pulse Resp BP Pulse Ox 97.6 F 86 16 134/58 H 99 04/19/20 04:41 04/19/20 07:00 04/19/20 04:41 04/19/20 04:41 04/19/20 04:41 Intake & Output 04/18/20 04/19/20 04/20/20 06:59 06:59 06:59 Intake Total 1000 Balance 1000 Weight 52.3 kg General appearance: PRESENT: no acute distress, thin Head exam: PRESENT: normocephalic Eye exam: PRESENT: EOMI, scleral icterus Mouth exam: PRESENT: tongue midline Neck exam: ABSENT: lymphadenopathy, tenderness Respiratory exam: PRESENT: clear to auscultation sophia, unlabored Cardiovascular exam: PRESENT: RRR GI/Abdominal exam: PRESENT: ascites, distended, soft Extremities exam: ABSENT: pedal edema Neurological exam: PRESENT: alert, awake, other - Able to give history, but not able to ask all questions appropriately about her illness. Psychiatric exam: PRESENT: appropriate affect Skin exam: PRESENT: normal color Results Laboratory Results: 04/19/20 00:41 04/19/20 00:41 04/19/20 04/19/20 04/19/20 00:41 00:41 04:50 WBC 7.8 RBC 5.24 Hgb 16.8 H Hct 47.6 H MCV 91 MCH 32.0 MCHC 35.2 RDW 19.3 H Plt Count 289 Seg Neutrophils % 67.4 Sodium 133.8 L Potassium 4.8 Chloride 97 L Carbon Dioxide 22 Anion Gap 15 BUN 28 H Creatinine 1.05 Est GFR ( Amer) > 60 Glucose 54 L Calcium 9.8 Total Bilirubin 14.6 H AST 467 H Alkaline Phosphatase 621 H Ammonia 53.0 H Total Protein 7.8 Albumin 2.9 L Lipase 128.3 Impressions: KUB X-Ray 04/19/20 00:03 IMPRESSION: Nonspecific bowel gas pattern. A few nondilated air-filled loops of small bowel may reflect mild ileus. Questionable right renal calculi. copyright 2010 [employer]- All Rights Reserved Abdomen/Pelvis CT 04/19/20 01:27 IMPRESSION: The liver has a heterogeneous appearance with suggestion of multiple masses possibly present. Further evaluation with postcontrast imaging is recommended. There are multiple nodules within the lung bases which may represent evidence of metastatic disease. There is a moderate amount of free intraperitoneal fluid suggestive of ascites. Bilateral renal calcifications are present. Status: Image reviewed by me Assessment & Plan - Diagnosis (1) Ascites Qualifiers: Ascites type: malignant Qualified Code(s): R18.0 - Malignant ascites Is this a current diagnosis for this admission?: Yes Plan: Paracentesis today for cytology. I discussed with Alexander in radiology. She was given Heparin this morning and her PT/PTT are both elevated. Will wait but hopefully paracentesis can still be performed later today. (2) Mass of multiple sites of liver Is this a current diagnosis for this admission?: Yes Plan: Full staging would be beneficial. However, patient may not be a candidate for aggressive therapy due to her bili. She is allergic to IV contrast, so I will cancel the CT with contrast of the chest and head. May consider MRI brain, but I'm not sure what benefit CT chest will be without contrast. Her ammonia level was elevated. I agree with lactulose to try to improve this. - Plan Summary Plan Summary: I will be happy to plan a family meeting to discuss everything once cytology is available. I do not believe it will be safe to obtain further biopsies due to risk of bleeding. Patient was discussed with Dr. Haley and with interventional radiology. I will also check AFP and CEA levels. Would repeat CBC, CMP, PT, PTT in am as well as ammonia. Please call with any questions or concerns.
[2020-04-19] MEDS: LACTULOSE SYRUP 20 GM/30 ML UDCUP PO SCH ×2 (09:32→18:14)
--- NOTE | 2020-04-19 09:37 | EKG REPORT ---
SEVERITY:- ABNORMAL ECG - SINUS TACHYCARDIA RIGHT BUNDLE BRANCH BLOCK PROBABLE INFERIOR INFARCT, AGE INDETERMINATE : Confirmed by: Carole Coto 19-Apr-2020 09:37:06
--- NOTE | 2020-04-19 13:19 | RADIOLOGY REPORT (SQ) ---
EXAM DESCRIPTION: MRI HEAD COMBO IMAGES COMPLETED DATE/TIME: 04/19/2020 10:32 am REASON FOR STUDY: metastasis COMPARISON: None. TECHNIQUE: Multiplanar imaging includes noncontrasted T1, T2, FLAIR, diffusion with ADC map and post gadolinium contrast T1 sequences. MP rage Images stored on PACS. CONTRAST TYPE AND DOSE: 10 mL Prohance. RENAL FUNCTION: Not indicated. ACR Type II contrast agent associated with few, if any, unconfounded cases of NSF LIMITATIONS: None. FINDINGS: ANATOMY: No anomalies. Normal vascular flow voids. Pituitary fossa normal. CSF SPACES: Normal in size and contour. No hemorrhage. CEREBRUM: Sulci and gyri normal in size and contour. Normal white matter signal on FLAIR imaging. No evidence of hemorrhage, mass, or extraaxial fluid collection. No abnormal enhancement post contrast. POSTERIOR FOSSA: No signal alteration. No hemorrhage. No edema, masses, or mass effect. Internal chay tory canals, cerebellopontine angles, mastoids normal. No enhancing lesions. No abnormal enhancement post contrast. DIFFUSION IMAGING: Negative for acute or subacute infarction. ORBITS: No masses. Globes normal. PARANASAL SINUSES: No fluid levels. Mucosa normal. OTHER: No other significant finding. IMPRESSION: NORMAL MRI OF THE BRAIN WITHOUT AND WITH INTRAVENOUS GADOLINIUM CONTRAST. No metastases. EVIDENCE OF ACUTE STROKE: NO. TECHNICAL DOCUMENTATION: JOB ID: [id number] 2010 [employer]- All Rights Reserved Reading location - IP/workstation name: [email or web address]
--- NOTE | 2020-04-19 15:38 | RADIOLOGY REPORT (SQ) ---
EXAM DESCRIPTION: U/S ABD PARACENTESIS IMAGES COMPLETED DATE/TIME: 04/19/2020 2:44 pm REASON FOR STUDY: liver masses, ascites COMPARISON None. LIMITATIONS: None. PROCEDURE: The procedure, risks, benefits, and alternatives were discussed with the patient and the patient's family who then gave written consent. The right lower quadrant was then marked utilizing s onographic guidance and a time-out was performed to document correct marking verification. The area around the selected percutaneous access site was then prepped and draped with 2% chlorhexidi ne utilizing standard sterile technique. After that, the selected access site was infiltrated with 5 ml of 1% lidocaine. A 6 [place] [id number] catheter was then introduced into the fluid-filled p eritoneal cavity and the fluid was aspirated. After the fluid was aspirated, the catheter was removed and the entry site was covered with a sterile bandage. No immediate complications were noted. Volume of Fluid: 2700 mL. Quality of the Fluid: Straw-colored. Was the fluid collected for analysis? Yes. Images acquired during the procedure were submitted to PACS. The patient tolerated the procedure with local anesthesia. At the end of the procedure the patient's condition was unchanged from the preprocedural baseline. Documentation of [id number] time the proceduralist spent monitoring the patient: 15 minutes. IMPRESSION: Successful ultrasound-guided paracentesis. COMMENT: Patient medication list reviewed: Yes- Quality ID# [id number]:Eligible professional attests to doc umenting in the medical record they obtained, updated, or reviewed the patient's current medications. TECHNICAL DOCUMENTATION: JOB ID: [id number] 2010 [employer]- All Rights Reserved Reading location - IP/workstation name: [email or web address]
--- NOTE | 2020-04-19 16:45 | Progress Note ---
Provider Note Provider Note: Patient admitted late this morning by Dr. Warren. Please see H&P for full evaluation and treatment plan. Patient admitted for acute metabolic encephalopathy and found to have multiple large liver masses, oncology consulted who recommended IR paracentesis with cytology of fluid, possibly will get liver biopsy if the fluid is unrevealing for cancer cells. Patient is alert and oriented but has difficulty following conversation, makes odd statements intermittently, and is very slow to answer in general. Lactulose started. Direct bilirubin extremely high. AFP and CEA ordered by oncology and pending. Patient seen and evaluated by me.
[2020-04-19 17:58] LABS: FLUID SOURCE ASCITES; FLUID TYPE PERITONEAL
[2020-04-19 17:59] LABS: FLUID APPEARANCE HAZY; FLUID COLOR YELLOW; FLUID VISCOSITY SLIGHTLY VISCOUS
[2020-04-20 06:33] LABS: HEMATOCRIT 43.7 % (36.0-47.0); HEMOGLOBIN 15.4 g/dL (12.0-15.5); MEAN CORPUSCULAR HEMOGLOBIN 31.6 pg (27.0-33.4); MEAN CORPUSCULAR HGB CONC 35.2 g/dL (32.0-36.0); MEAN CORPUSCULAR VOLUME 90 fl (80-97); PLATELET COUNT 230 10^3/uL (150-450); RED BLOOD COUNT 4.86 10^6/uL (3.72-5.28); RED CELL DISTRIBUTION WIDTH 19.6 % (11.5-14.0); WHITE BLOOD COUNT 7.7 10^3/uL (4.0-10.5)
[2020-04-20 06:38] LABS: PROTHROMBIN TIME 24.5 SEC (11.4-15.4)
[2020-04-20 06:39] LABS: PARTIAL THROMBOPLASTIN TIME 40.1 SEC (23.5-35.8)
[2020-04-20 07:01] LABS: ALBUMIN 2.4 g/dL (3.5-5.0); ALKALINE PHOSPHATASE 563 U/L (38-126); ANION GAP 8 (5-19); ASPARTATE AMINO TRANSFERASE 354 U/L (14-36); BILIRUBIN,TOTAL 12.8 mg/dL (0.2-1.3); BLOOD UREA NITROGEN 26 mg/dL (7-20); CALCIUM 9.5 mg/dL (8.4-10.2); CARBON DIOXIDE 23 mmol/L (22-30); CHLORIDE 103 mmol/L (98-107); GLUCOSE 105 mg/dL (75-110); POTASSIUM 3.8 mmol/L (3.6-5.0); TOTAL PROTEIN 6.9 g/dL (6.3-8.2)
--- NOTE | 2020-04-20 08:46 | PDOC PROGRESS REPORT ---
Subjective Progress Note for:: 04/20/20 Subjective:: Patient states that she is still having back pain. She is able to tell me to call her son, Earnest and give him an update. No other complaints today. Reason For Visit: ACUTE LIVER FAILURE,MULTIPLE LIVER AND LUNG MASSES Physical Exam Vital Signs: Temp Pulse Resp BP Pulse Ox 97.4 F 70 16 132/64 H 98 04/19/20 23:38 04/20/20 02:00 04/19/20 23:38 04/19/20 23:38 04/19/20 23:38 Intake & Output 04/19/20 04/20/20 04/21/20 06:59 06:59 06:59 Intake Total 1000 300 Balance 1000 300 Weight 52.3 kg 53.1 kg General appearance: PRESENT: no acute distress, thin Head exam: PRESENT: normocephalic Respiratory exam: PRESENT: unlabored GI/Abdominal exam: PRESENT: soft. ABSENT: tenderness Extremities exam: ABSENT: pedal edema Neurological exam: PRESENT: alert, awake Psychiatric exam: PRESENT: appropriate affect Results Laboratory Results: 04/20/20 06:11 04/20/20 06:11 04/19/20 04/20/20 04/20/20 13:50 06:11 06:11 WBC 7.7 RBC 4.86 Hgb 15.4 Hct 43.7 MCV 90 MCH 31.6 MCHC 35.2 RDW 19.6 H Plt Count 230 Sodium 134.1 L Potassium 3.8 Chloride 103 Carbon Dioxide 23 Anion Gap 8 BUN 26 H Creatinine 0.80 Est GFR ( Amer) > 60 Glucose 105 Calcium 9.5 Total Bilirubin 12.8 H AST 354 H Alkaline Phosphatase 563 H Ammonia Total Protein 6.9 Albumin 2.4 L Fluid Type PERITONEAL Fluid Source ASCITES Fluid Color YELLOW Fluid Appearance HAZY Fluid Viscosity SLIGHTLY VISCOUS Fluid WBC 232 Fluid RBC 660 04/20/20 06:11 WBC RBC Hgb Hct MCV MCH MCHC RDW Plt Count Sodium Potassium Chloride Carbon Dioxide Anion Gap BUN Creatinine Est GFR ( Amer) Glucose Calcium Total Bilirubin AST Alkaline Phosphatase Ammonia 103.2 H Total Protein Albumin Fluid Type Fluid Source Fluid Color Fluid Appearance Fluid Viscosity Fluid WBC Fluid RBC Impressions: Head MRI 04/19/20 00:00 IMPRESSION: NORMAL MRI OF THE BRAIN WITHOUT AND WITH INTRAVENOUS GADOLINIUM CONTRAST. No metastases. EVIDENCE OF ACUTE STROKE: NO. Paracentesis Ultrasound 04/19/20 00:00 IMPRESSION: Successful ultrasound-guided paracentesis. KUB X-Ray 04/19/20 00:03 IMPRESSION: Nonspecific bowel gas pattern. A few nondilated air-filled loops of small bowel may reflect mild ileus. Questionable right renal calculi. copyright 2011 [employer]- All Rights Reserved Abdomen/Pelvis CT 04/19/20 01:27 IMPRESSION: The liver has a heterogeneous appearance with suggestion of multiple masses possibly present. Further evaluation with postcontrast imaging is recommended. There are multiple nodules within the lung bases which may represent evidence of metastatic disease. There is a moderate amount of free intraperitoneal fluid suggestive of ascites. Bilateral renal calcifications are present. Assessment & Plan - Diagnosis (1) Ascites Qualifiers: Ascites type: malignant Qualified Code(s): R18.0 - Malignant ascites Is this a current diagnosis for this admission?: Yes Plan: s/p paracentesis yesterday. Await cytology report. (2) Mass of multiple sites of liver Is this a current diagnosis for this admission?: Yes Plan: Her ammonia level has almost doubled from yesterday. It's definitely going in the Wrong direction. I discussed her care with her son, Earnest. I have explained that this looks like widespread cancer, but we are awaiting cytology for confirmation. He will speak with other family members. I have explained that she will NOT be able to return home without 24 hour care. She is very Hospice appropriate. He would also like to speak with painting trades worker to discuss options. - Time Time Spent with patient: 15-24 minutes
[2020-04-20] MEDS: RINGERS SOLUTION,LACTATED 1,000 ML IV PRN (10:11)
[2020-04-20] MEDS: LACTULOSE SYRUP 20 GM/30 ML UDCUP PO SCH ×4 (11:30→21:36)
--- NOTE | 2020-04-20 16:36 | PDOC PROGRESS REPORT ---
Subjective Progress Note for:: 04/20/20 Subjective:: Patient admitted for severe acute metabolic encephalopathy due to acute liver failure from what appears to be likely primary hepatocellular carcinoma. aFP markedly elevated, CEA elevated as well. Patient is persistently encephalopathic, actually seems a bit worse today. Ammonia has approximately doubled today despite getting lactulose, lactulose dose increased to 4 times daily. LFTs trending down. Paracentesis cultures negative so far. Cytology of abdominal fluid is pending. Oncology following and stated patient is not currently a candidate for any chemotherapy due to severely elevated bilirubin and elevated LFTs. Patient is certainly a candidate for hospice and this is being explored by the patient's family who discussed it with the oncologist. Logan rosemarysoila cannot articulate any complaints today and is bit more confused. Reason For Visit: ACUTE LIVER FAILURE,MULTIPLE LIVER AND LUNG MASSES Physical Exam Vital Signs: Temp Pulse Resp BP Pulse Ox 97.4 F 91 18 118/54 L 95 04/20/20 12:13 04/20/20 14:00 04/20/20 12:13 04/20/20 12:13 04/20/20 12:13 Intake & Output 04/19/20 04/20/20 04/21/20 06:59 06:59 06:59 Intake Total 1000 1300 150 Balance 1000 1300 150 Weight 52.3 kg 53.1 kg General appearance: PRESENT: no acute distress, disheveled, thin Head exam: PRESENT: atraumatic, normocephalic Eye exam: PRESENT: conjunctiva pink Mouth exam: PRESENT: moist Respiratory exam: PRESENT: clear to auscultation sophia. ABSENT: rales, rhonchi, wheezes Cardiovascular exam: PRESENT: RRR. ABSENT: diastolic murmur, rubs, systolic murmur GI/Abdominal exam: PRESENT: normal bowel sounds, organolmegaly - Hepatomegaly, soft, tenderness. ABSENT: distended, guarding, mass, rebound Rectal exam: PRESENT: deferred Neurological exam: PRESENT: alert, awake, oriented to person, oriented to place Psychiatric exam: PRESENT: appropriate affect, normal mood Skin exam: PRESENT: dry, intact, warm Results Laboratory Results: 04/20/20 06:11 04/20/20 06:11 04/19/20 04/20/20 04/20/20 13:50 06:11 06:11 WBC 7.7 RBC 4.86 Hgb 15.4 Hct 43.7 MCV 90 MCH 31.6 MCHC 35.2 RDW 19.6 H Plt Count 230 Sodium 134.1 L Potassium 3.8 Chloride 103 Carbon Dioxide 23 Anion Gap 8 BUN 26 H Creatinine 0.80 Est GFR ( Amer) > 60 Glucose 105 Calcium 9.5 Total Bilirubin 12.8 H AST 354 H Alkaline Phosphatase 563 H Ammonia Total Protein 6.9 Albumin 2.4 L Fluid Type PERITONEAL Fluid Source ASCITES Fluid Color YELLOW Fluid Appearance HAZY Fluid Viscosity SLIGHTLY VISCOUS Fluid WBC 232 Fluid RBC 660 04/20/20 06:11 WBC RBC Hgb Hct MCV MCH MCHC RDW Plt Count Sodium Potassium Chloride Carbon Dioxide Anion Gap BUN Creatinine Est GFR ( Amer) Glucose Calcium Total Bilirubin AST Alkaline Phosphatase Ammonia 103.2 H Total Protein Albumin Fluid Type Fluid Source Fluid Color Fluid Appearance Fluid Viscosity Fluid WBC Fluid RBC Impressions: Head MRI 04/19/20 00:00 IMPRESSION: NORMAL MRI OF THE BRAIN WITHOUT AND WITH INTRAVENOUS GADOLINIUM CONTRAST. No metastases. EVIDENCE OF ACUTE STROKE: NO. Paracentesis Ultrasound 04/19/20 00:00 IMPRESSION: Successful ultrasound-guided paracentesis. KUB X-Ray 04/19/20 00:03 IMPRESSION: Nonspecific bowel gas pattern. A few nondilated air-filled loops of small bowel may reflect mild ileus. Questionable right renal calculi. copyright 2011 [employer]- All Rights Reserved Abdomen/Pelvis CT 04/19/20 01:27 IMPRESSION: The liver has a heterogeneous appearance with suggestion of multiple masses possibly present. Further evaluation with postcontrast imaging is recommended. There are multiple nodules within the lung bases which may represent evidence of metastatic disease. There is a moderate amount of free intraperitoneal fluid suggestive of ascites. Bilateral renal calcifications are present. Assessment and Plan - Diagnosis (1) Mass of multiple sites of liver Is this a current diagnosis for this admission?: Yes Plan: Seen on CT scan Oncology consulted and the case was discussed with Dr. Underwood Not a candidate for chemotherapy currently due to markedly elevated bilirubin and elevated LFTs Hospice candidate, family discussing this Severely elevated ammonia with resultant acute metabolic encephalopathy, started on lactulose (2) Ascites Qualifiers: Ascites type: malignant Qualified Code(s): R18.0 - Malignant ascites Is this a current diagnosis for this admission?: Yes Plan: Paracentesis with fluid studies ordered Ascites fluid culture negative, cytology pending (3) Hyperbilirubinemia Is this a current diagnosis for this admission?: Yes Plan: Likely due to acute liver failure from multiple large hepatic masses (4) Liver disease Is this a current diagnosis for this admission?: Yes (5) Lung metastases Qualifiers: Laterality: unspecified laterality Qualified Code(s): C78.00 - Secondary malignant neoplasm of unspecified lung Is this a current diagnosis for this admission?: Yes (6) Multiple lung nodules Is this a current diagnosis for this admission?: Yes Plan: Seen on CT, likely metastasis (7) Abdominal pain Qualifiers: Abdominal location: generalized Qualified Code(s): R10.84 - Generalized abdominal pain Is this a current diagnosis for this admission?: Yes - Time Time Spent with patient: 25-34 minutes Medications reviewed and adjusted accordingly: Yes Anticipated Discharge Disposition: Home with Hospice Anticipated Discharge Timeframe: within 72 hours - Inpatient Certification Based on my medical assessment, after consideration of the patient's mercy rbidities, presenting symptoms, or acuity I expect that the services needed warrant INPATIENT care.: Yes I certify that my determination is in accordance with my understanding of Medicare's requirements for reasonable and necessary INPATIENT services [42 CFR 412.3e].: Yes Medical Necessity: Significant Comorbidiites Make Outpatient Treatment Too Risky, Need Close Monitoring Due to Risk of Patient Decompensation, Need For IV Fluids, Risk of Complication if Not Cared For in Hospital, Risk of Diagnosis Which Will Require Inpatient Eval/Care/Monitoring
[2020-04-21 05:42] LABS: HEMATOCRIT 44.2 % (36.0-47.0); HEMOGLOBIN 15.6 g/dL (12.0-15.5); MEAN CORPUSCULAR HEMOGLOBIN 31.3 pg (27.0-33.4); MEAN CORPUSCULAR HGB CONC 35.3 g/dL (32.0-36.0); MEAN CORPUSCULAR VOLUME 89 fl (80-97); PLATELET COUNT 201 10^3/uL (150-450); RED BLOOD COUNT 4.99 10^6/uL (3.72-5.28); RED CELL DISTRIBUTION WIDTH 19.6 % (11.5-14.0); WHITE BLOOD COUNT 8.9 10^3/uL (4.0-10.5)
[2020-04-21 05:44] LABS: INTERNATIONAL RATION (INR) 2.11; PARTIAL THROMBOPLASTIN TIME 38.9 SEC (23.5-35.8); PROTHROMBIN TIME 23.7 SEC (11.4-15.4)
[2020-04-21 05:51] LABS: ALBUMIN 2.4 g/dL (3.5-5.0); ALKALINE PHOSPHATASE 546 U/L (38-126); ANION GAP 8 (5-19); ASPARTATE AMINO TRANSFERASE 297 U/L (14-36); BILIRUBIN,DIRECT 10.7 mg/dL (0.0-0.4); BILIRUBIN,TOTAL 12.3 mg/dL (0.2-1.3); BLOOD UREA NITROGEN 23 mg/dL (7-20); CALCIUM 9.7 mg/dL (8.4-10.2); CARBON DIOXIDE 25 mmol/L (22-30); CHLORIDE 104 mmol/L (98-107); GLUCOSE 103 mg/dL (75-110); POTASSIUM 3.4 mmol/L (3.6-5.0); TOTAL PROTEIN 6.9 g/dL (6.3-8.2)
[2020-04-21] MEDS: LACTULOSE SYRUP 20 GM/30 ML UDCUP PO SCH ×4 (10:33→21:54)
[2020-04-21] MEDS ORDERED: HYDROMORPHONE HCL INJ/PF 2 MG/ML AMPULE IV PRN (13:39)
--- NOTE | 2020-04-21 15:06 | PDOC PROGRESS REPORT ---
Subjective Subjective:: Patient admitted for severe acute metabolic encephalopathy due to acute liver failure from what appears to be likely primary hepatocellular carcinoma. aFP markedly elevated, CEA elevated as well. Patient is persistently encephalopathic, actually seems a bit worse today. Ammonia has approximately doubled today despite getting lactulose, lactulose dose increased to 4 times daily. LFTs trending down. Paracentesis cultures negative so far. Cytology of abdominal fluid is pending. Oncology following and stated patient is not currently a candidate for any chemotherapy due to severely elevated bilirubin and elevated LFTs. Patient is certainly a candidate for hospice and this is being explored by the patient's family who discussed it with the oncologist. Patient cannot articulate any complaints today and is bit more confused. 04/21/2020 Mentation is a bit clearer today and she is more alert, having multiple bowel movements since yesterday. Ammonia is lower but still elevated. LFTs are still elevated without much change. Ascites fluid shows negative bacterial culture so far with a WBC count of 232 although count is reportedly unreliable due to multiple large cells that are identified. Cytology did not show any cancer cells. I discussed liver biopsy with the patient she states that she might be interested in this as did the family. After this was discussed with Dr. Underowod, it was determined that the patient is too high bleeding risk due to her coagulopathy to undergo liver biopsy. The family is currently discussing home hospice options and I believe this is the appropriate plan for this patient. Given the invasive nature of this cancer which is very likely HCC and the fact that she is not a candidate for any aggressive treatment per oncology, I believe keeping the patient comfortable for the remainder of her life is the best option. Patient has some abdominal discomfort and I have prescribed some low- dose Dilaudid for this as we are trying to avoid Tylenol which can worsen her liver failure. Reason For Visit: ACUTE LIVER FAILURE,MULTIPLE LIVER AND LUNG MASSES Physical Exam Vital Signs: Temp Pulse Resp BP Pulse Ox 97.4 F 92 17 117/55 L 95 04/21/20 07:47 04/21/20 07:47 04/21/20 07:47 04/21/20 07:47 04/21/20 07:47 Intake & Output 04/20/20 04/21/20 04/22/20 06:59 06:59 06:59 Intake Total 1300 400 Balance 1300 400 Weight 53.1 kg 53.1 kg 53.1 kg General appearance: PRESENT: no acute distress, well-developed, well-nourished Head exam: PRESENT: atraumatic, normocephalic Eye exam: PRESENT: conjunctiva pink, scleral icterus Mouth exam: PRESENT: moist Respiratory exam: PRESENT: clear to auscultation sophia. ABSENT: rales, rhonchi, wheezes Cardiovascular exam: PRESENT: RRR. ABSENT: diastolic murmur, rubs, systolic murmur GI/Abdominal exam: PRESENT: normal bowel sounds, organolmegaly, soft, tenderness - Mild. ABSENT: distended, guarding, mass, rebound Neurological exam: PRESENT: alert, awake, oriented to person, oriented to place, oriented to time, oriented to situation Psychiatric exam: PRESENT: normal mood, unusual affect Skin exam: PRESENT: dry, intact, warm Results Laboratory Results: 04/21/20 04:59 04/21/20 04:59 04/21/20 04/21/20 04/21/20 04:59 04:59 04:59 WBC 8.9 RBC 4.99 Hgb 15.6 H Hct 44.2 MCV 89 MCH 31.3 MCHC 35.3 RDW 19.6 H Plt Count 201 Sodium 137.1 Potassium 3.4 L Chloride 104 Carbon Dioxide 25 Anion Gap 8 BUN 23 H Creatinine 0.65 Est GFR ( Amer) > 60 Glucose 103 Calcium 9.7 Total Bilirubin 12.3 H AST 297 H Alkaline Phosphatase 546 H Ammonia 61.9 H Total Protein 6.9 Albumin 2.4 L Impressions: Head MRI 04/19/20 00:00 IMPRESSION: NORMAL MRI OF THE BRAIN WITHOUT AND WITH INTRAVENOUS GADOLINIUM CONTRAST. No metastases. EVIDENCE OF ACUTE STROKE: NO. Paracentesis Ultrasound 04/19/20 00:00 IMPRESSION: Successful ultrasound-guided paracentesis. KUB X-Ray 04/19/20 00:03 IMPRESSION: Nonspecific bowel gas pattern. A few nondilated air-filled loops of small bowel may reflect mild ileus. Questionable right renal calculi. copyright 2011 [employer]- All Rights Reserved Abdomen/Pelvis CT 04/19/20 01:27 IMPRESSION: The liver has a heterogeneous appearance with suggestion of multiple masses possibly present. Further evaluation with postcontrast imaging is recommended. There are multiple nodules within the lung bases which may represent evidence of metastatic disease. There is a moderate amount of free intraperitoneal fluid suggestive of ascites. Bilateral renal calcifications are present. Assessment and Plan - Diagnosis (1) Mass of multiple sites of liver Is this a current diagnosis for this admission?: Yes Plan: Seen on CT scan Oncology consulted and the case was discussed with Dr. Underwood Not a candidate for chemotherapy currently due to markedly elevated bilirubin and elevated LFTs Hospice candidate, family discussing this Severely elevated ammonia with resultant acute metabolic encephalopathy, started on lactulose Markedly elevated AFP, elevated CEA; most likely HCC Per oncology, not a candidate for liver biopsy due to coagulopathy, they recommended hospice (2) Ascites Qualifiers: Ascites type: malignant Qualified Code(s): R18.0 - Malignant ascites Is this a current diagnosis for this admission?: Yes Plan: Paracentesis with fluid studies done Ascites fluid culture negative, cytology negative for malignancy (3) Hyperbilirubinemia Is this a current diagnosis for this admission?: Yes (4) Liver disease Is this a current diagnosis for this admission?: Yes (5) Lung metastases Qualifiers: Laterality: unspecified laterality Qualified Code(s): C78.00 - Secondary malignant neoplasm of unspecified lung Is this a current diagnosis for this admission?: Yes (6) Multiple lung nodules Is this a current diagnosis for this admission?: Yes (7) Abdominal pain Qualifiers: Abdominal location: generalized Qualified Code(s): R10.84 - Generalized abdominal pain Is this a current diagnosis for this admission?: Yes Plan: Avoid Tylenol due to liver failure Low-dose Dilaudid IV - Time Time Spent with patient: 25-34 minutes Medications reviewed and adjusted accordingly: Yes Anticipated Discharge Disposition: Home with Hospice Anticipated Discharge Timeframe: within 48 hours - Inpatient Certification Based on my medical assessment, after consideration of the patient's comorbidities, presenting symptoms, or acuity I expect that the services needed warrant INPATIENT care.: Yes I certify that my determination is in accordance with my understanding of Medicare's requirements for reasonable and necessary INPATIENT services [42 CFR 412.3e].: Yes Medical Necessity: Significant Comorbidiites Make Outpatient Treatment Too Risky, Need Close Monitoring Due to Risk of Patient Decompensation, Risk of Complication if Not Cared For in Hospital, Risk of Diagnosis Which Will Require Inpatient Eval/Care/Monitoring
[2020-04-21] MEDS: RINGERS SOLUTION,LACTATED 1,000 ML IV PRN (21:54)
[2020-04-22 06:34] LABS: HEMATOCRIT 44.1 % (36.0-47.0); HEMOGLOBIN 15.4 g/dL (12.0-15.5); MEAN CORPUSCULAR HEMOGLOBIN 31.4 pg (27.0-33.4); MEAN CORPUSCULAR HGB CONC 34.9 g/dL (32.0-36.0); MEAN CORPUSCULAR VOLUME 90 fl (80-97); PLATELET COUNT 178 10^3/uL (150-450); RED BLOOD COUNT 4.91 10^6/uL (3.72-5.28); RED CELL DISTRIBUTION WIDTH 20.1 % (11.5-14.0); WHITE BLOOD COUNT 11.6 10^3/uL (4.0-10.5)
[2020-04-22 06:50] LABS: INTERNATIONAL RATION (INR) 2.42; PROTHROMBIN TIME 26.3 SEC (11.4-15.4)
[2020-04-22 06:59] LABS: ALBUMIN 2.2 g/dL (3.5-5.0); ALKALINE PHOSPHATASE 498 U/L (38-126); ANION GAP 10 (5-19); ASPARTATE AMINO TRANSFERASE 267 U/L (14-36); BILIRUBIN,DIRECT 10.9 mg/dL (0.0-0.4); BILIRUBIN,TOTAL 12.6 mg/dL (0.2-1.3); BLOOD UREA NITROGEN 22 mg/dL (7-20); CALCIUM 9.7 mg/dL (8.4-10.2); CARBON DIOXIDE 21 mmol/L (22-30); CHLORIDE 106 mmol/L (98-107); GLUCOSE 109 mg/dL (75-110); POTASSIUM 3.6 mmol/L (3.6-5.0); TOTAL PROTEIN 6.5 g/dL (6.3-8.2)
--- NOTE | 2020-04-22 08:58 | PDOC PROGRESS REPORT ---
Subjective Subjective:: Patient very tearful today and wants to go home. She refused her Lactulose earlier. She is not eating much. Reason For Visit: ACUTE LIVER FAILURE,MULTIPLE LIVER AND LUNG MASSES Physical Exam Vital Signs: Temp Pulse Resp BP Pulse Ox 98.0 F 92 16 120/73 94 04/21/20 23:54 04/22/20 07:00 04/21/20 23:54 04/21/20 23:54 04/21/20 23:54 Intake & Output 04/21/20 04/22/20 04/23/20 06:59 06:59 06:59 Intake Total 1400 250 Balance 1400 250 Weight 53.1 kg 53.1 kg General appearance: PRESENT: no acute distress, thin Head exam: PRESENT: normocephalic GI/Abdominal exam: PRESENT: distended Extremities exam: ABSENT: pedal edema Neurological exam: PRESENT: altered, awake Psychiatric exam: PRESENT: depressed, other - Very tearful. Skin exam: PRESENT: normal color Results Laboratory Results: 04/22/20 05:36 04/22/20 05:36 04/22/20 04/22/20 04/22/20 05:36 05:36 05:36 WBC 11.6 H RBC 4.91 Hgb 15.4 Hct 44.1 MCV 90 MCH 31.4 MCHC 34.9 RDW 20.1 H Plt Count 178 Sodium 137.2 Potassium 3.6 Chloride 106 Carbon Dioxide 21 L Anion Gap 10 BUN 22 H Creatinine 0.62 Est GFR ( Amer) > 60 Glucose 109 Calcium 9.7 Total Bilirubin 12.6 H AST 267 H Alkaline Phosphatase 498 H Ammonia 59.4 H Total Protein 6.5 Albumin 2.2 L Impressions: Head MRI 04/19/20 00:00 IMPRESSION: NORMAL MRI OF THE BRAIN WITHOUT AND WITH INTRAVENOUS GADOLINIUM CONTRAST. No metastases. EVIDENCE OF ACUTE STROKE: NO. Paracentesis Ultrasound 04/19/20 00:00 IMPRESSION: Successful ultrasound-guided paracentesis. KUB X-Ray 04/19/20 00:03 IMPRESSION: Nonspecific bowel gas pattern. A few nondilated air-filled loops of small bowel may reflect mild ileus. Questionable right renal calculi. copyright 2010 [employer]- All Rights Reserved Abdomen/Pelvis CT 04/19/20 01:27 IMPRESSION: The liver has a heterogeneous appearance with suggestion of multiple masses possibly present. Further evaluation with postcontrast imaging is recommended. There are multiple nodules within the lung bases which may represent evidence of metastatic disease. There is a moderate amount of free intraperitoneal fluid suggestive of ascites. Bilateral renal calcifications are present. Assessment & Plan - Diagnosis (1) Ascites Qualifiers: Ascites type: malignant Qualified Code(s): R18.0 - Malignant ascites Is this a current diagnosis for this admission?: Yes (2) Mass of multiple sites of liver Is this a current diagnosis for this admission?: Yes Plan: I spoke with her son, Earnest today. Family is working on arranging Hospice at home. He understands that biopsy is NOT recommended and that no treatment will be possible. As soon as Hospice is arranged, she will be discharged. I spoke with patient and she states that she does not wish to be on any machines and wants DNR. I also spoke with her son. He will discuss this with her and with the other children and confirm DNR status. - Time Time Spent with patient: 15-24 minutes
[2020-04-22] MEDS: LACTULOSE SYRUP 20 GM/30 ML UDCUP PO SCH ×4 (10:47→23:09)
--- NOTE | 2020-04-22 14:31 | PDOC DISCHARGE SUMMARY ---
Impression - Admit/DC Date/PCP Admission Date/Primary Care Provider: 04/19/20 03:29 Discharge Date: 04/22/20 - Discharge Diagnosis (1) Mass of multiple sites of liver Is this a current diagnosis for this admission?: Yes (2) Ascites Is this a current diagnosis for this admission?: Yes (3) Hyperbilirubinemia Is this a current diagnosis for this admission?: Yes (4) Liver disease Is this a current diagnosis for this admission?: Yes (5) Lung metastases Is this a current diagnosis for this admission?: Yes (6) Multiple lung nodules Is this a current diagnosis for this admission?: Yes (7) Abdominal pain Is this a current diagnosis for this admission?: Yes - Additional Information Discharge Diet: As Tolerated Discharge Activity: Bedrest Referrals: MARI WALLIS MD [ACTIVE STAFF] - Follow up as needed Home Medications: No Home Medications 04/19/20 History of Present Illiness History of Present Illness: Per Admitting Physician: "ANN ROYAL is a 75 year old female who used to see Dr. Wallis but has not been to see him in over 3 years. She presents with progressive weight loss, decreased appetite, and progressive weakness. She has had some swelling in her belly that is increased over the past several days. She is not had a good bowel movement in several days and her son thought maybe she was constipated. She had profound scleral icterus on examination. Her bilirubin was substantially elevated and her transaminases were elevated as well, as was her alkaline phosphatase. Scan of her abdomen and pelvis showed multiple liver masses, ascites, and some possible bilateral lower lung nodules. She has no prior history of cancer. She does not smoke. She has not been to a doctor in several years because she says she had not been sick." Hospital Course Hospital Course: Patient admitted for severe acute metabolic encephalopathy due to acute liver failure from what appears to be likely primary hepatocellular carcinoma. aFP markedly elevated, CEA elevated as well. Patient is persistently encephalopathic, actually seems a bit worse today. Ammonia has approximately doubled today despite getting lactulose, lactulose dose increased to 4 times daily. LFTs trending down. Paracentesis cultures negative so far. Cytology of abdominal fluid is pending. Oncology following and stated patient is not currently a candidate for any chemotherapy due to severely elevated bilirubin and elevated LFTs. Patient is certainly a candidate for hospice and this is being explored by the patient's family who discussed it with the oncologist. Patient cannot articulate any complaints today and is bit more confused. 04/21/2020 Mentation is a bit clearer today and she is more alert, having multiple bowel movements since yesterday. Ammonia is lower but still elevated. LFTs are still elevated without much change. Ascites fluid shows negative bacterial culture so far with a WBC count of 232 although count is reportedly unreliable due to multiple large cells that are identified. Cytology did not show any cancer cells. I discussed liver biopsy with the patient she states that she might be interested in this as did the family. After this was discussed with Dr. Underwood, it was determined that the patient is too high bleeding risk due to her coagulopathy to undergo liver biopsy. The family is currently discussing home hospice options and I believe this is the appropriate plan for this patient. Given the invasive nature of this cancer which is very likely HCC and the fact that she is not a candidate for any aggressive treatment per oncology, I believe keeping the patient comfortable for the remainder of her life is the best option. Patient has some abdominal discomfort and I have prescribed some low- dose Dilaudid for this as we are trying to avoid Tylenol which can worsen her liver failure. Patient discharged home with hospice per family and patient request. Per oncology: "I spoke with her son, Earnest today. Family is working on arranging Hospice at home. He understands that biopsy is NOT recommended and that no treatment will be possible. As soon as Hospice is arranged, she will be discharged. I spoke with patient and she states that she does not wish to be on any machines and wants DNR. I also spoke with her son. He will discuss this with her and with the other children and confirm DNR status." (1) Mass of multiple sites of liver Is this a current diagnosis for this admission?: Yes Plan: Seen on CT scan Oncology consulted and the case was discussed with Dr. Underwood Not a candidate for chemotherapy currently due to markedly elevated bilirubin and elevated LFTs Hospice candidate, family discussing this Severely elevated ammonia with resultant acute metabolic encephalopathy, started on lactulose Markedly elevated AFP, elevated CEA; most likely HCC Per oncology, not a candidate for liver biopsy due to coagulopathy, they recommended hospice (2) Ascites Qualifiers: Ascites type: malignant Qualified Code(s): R18.0 - Malignant ascites Is this a current diagnosis for this admission?: Yes Plan: Paracentesis with fluid studies done Ascites fluid culture negative, cytology negative for malignancy (3) Hyperbilirubinemia Is this a current diagnosis for this admission?: Yes (4) Liver disease Is this a current diagnosis for this admission?: Yes (5) Lung metastases Qualifiers: Laterality: unspecified laterality Qualified Code(s): C78.00 - Secondary malignant neoplasm of unspecified lung Is this a current diagnosis for this admission?: Yes (6) Multiple lung nodules Is this a current diagnosis for this admission?: Yes (7) Abdominal pain Qualifiers: Abdominal location: generalized Qualified Code(s): R10.84 - Generalized abdominal pain Is this a current diagnosis for this admission?: Yes Plan: Avoid Tylenol due to liver failure Low-dose Dilaudid IV Physical Exam Vital Signs: Temp Pulse Resp BP Pulse Ox 97.0 F 96 16 134/74 H 95 04/22/20 12:28 04/22/20 12:28 04/22/20 12:28 04/22/20 12:28 04/22/20 07:52 Intake & Output 04/21/20 04/22/20 04/23/20 06:59 06:59 06:59 Intake Total 1400 250 150 Balance 1400 250 150 Weight 53.1 kg 53.1 kg General appearance: PRESENT: no acute distress, cooperative, well-developed, well-nourished Head exam: PRESENT: atraumatic, normocephalic Eye exam: PRESENT: conjunctiva pink, scleral icterus Mouth exam: PRESENT: moist Respiratory exam: PRESENT: clear to auscultation sophia. ABSENT: rales, rhonchi, wheezes Cardiovascular exam: PRESENT: RRR. ABSENT: diastolic murmur, rubs, systolic murmur GI/Abdominal exam: PRESENT: normal bowel sounds, soft. ABSENT: distended, guarding, mass, organolmegaly, rebound, tenderness Neurological exam: PRESENT: alert, awake, oriented to person. ABSENT: oriented to place, oriented to time, oriented to situation Psychiatric exam: PRESENT: normal mood, unusual affect Skin exam: PRESENT: dry, intact, warm Results Laboratory Results: WBC 11.6 10^3/uL (4.0-10.5) H 04/22/20 05:36 RBC 4.91 10^6/uL (3.72-5.28) 04/22/20 05:36 Hgb 15.4 g/dL (12.0-15.5) 04/22/20 05:36 Hct 44.1 % (36.0-47.0) 04/22/20 05:36 MCV 90 fl (80-97) 04/22/20 05:36 MCH 31.4 pg (27.0-33.4) 04/22/20 05:36 MCHC 34.9 g/dL (32.0-36.0) 04/22/20 05:36 RDW 20.1 % (11.5-14.0) H 04/22/20 05:36 Plt Count 178 10^3/uL (150-450) 04/22/20 05:36 Lymph % (Auto) 19.5 % (13-45) 04/19/20 00:41 Miner % (Auto) 12.4 % (3-13) 04/19/20 00:41 Eos % (Auto) 0.1 % (0-6) 04/19/20 00:41 Baso % (Auto) 0.6 % (0-2) 04/19/20 00:41 Absolute Neuts (auto) 5.2 10^3/uL (1.7-8.2) 04/19/20 00:41 Absolute Lymphs (auto) 1.5 10^3/uL (0.5-4.7) 04/19/20 00:41 Absolute Monos (auto) 1.0 10^3/uL (0.1-1.4) 04/19/20 00:41 Absolute Eos (auto) 0.0 10^3/uL (0.0-0.6) 04/19/20 00:41 Absolute Basos (auto) 0.0 10^3/uL (0.0-0.2) 04/19/20 00:41 Seg Neutrophils % 67.4 % (42-78) 04/19/20 00:41 PT 26.3 SEC (11.4-15.4) H 04/22/20 05:36 INR 2.42 04/22/20 05:36 APTT 41.0 SEC (23.5-35.8) H 04/22/20 05:36 Sodium 137.2 mmol/L (137-145) 04/22/20 05:36 Potassium 3.6 mmol/L (3.6-5.0) 04/22/20 05:36 Chloride 106 mmol/L (98-107) 04/22/20 05:36 Carbon Dioxide 21 mmol/L (22-30) L 04/22/20 05:36 Anion Gap 10 (5-19) 04/22/20 05:36 BUN 22 mg/dL (7-20) H 04/22/20 05:36 Creatinine 0.62 mg/dL (0.52-1.25) 04/22/20 05:36 Est GFR ( Amer) > 60 (>60) 04/22/20 05:36 Est GFR (MDRD) Non-Af > 60 (>60) 04/22/20 05:36 Glucose 109 mg/dL (75-110) 04/22/20 05:36 POC Glucose 100 mg/dL (70-110) 04/19/20 04:05 Calcium 9.7 mg/dL (8.4-10.2) 04/22/20 05:36 Total Bilirubin 12.6 mg/dL (0.2-1.3) H 04/22/20 05:36 Direct Bilirubin 10.9 mg/dL (0.0-0.4) H 04/22/20 05:36 Neonat Total Bilirubin Not Reportable 04/22/20 05:36 Neonat Direct Bilirubin Not Reportable 04/22/20 05:36 Neonat Indirect Bili Not Reportable 04/22/20 05:36 AST 267 U/L (14-36) H 04/22/20 05:36 ALT 83 U/L (<35) H 04/22/20 05:36 Alkaline Phosphatase 498 U/L (38-126) H 04/22/20 05:36 Ammonia 59.4 umol/L (9-33) H 04/22/20 05:36 Total Protein 6.5 g/dL (6.3-8.2) 04/22/20 05:36 Albumin 2.2 g/dL (3.5-5.0) L 04/22/20 05:36 Lipase 128.3 U/L (23-300) 04/19/20 00:41 Tumor Marker AFP 4291.0 ng/mL (0.0-8.3) H 04/19/20 00:41 Carcinoembryonic Ag 24.40 ng/mL (<3.0) H 04/19/20 00:41 Fluid Type PERITONEAL 04/19/20 13:50 Fluid Source ASCITES 04/19/20 13:50 Fluid Color YELLOW 04/19/20 13:50 Fluid Appearance HAZY 04/19/20 13:50 Fluid Viscosity SLIGHTLY VISCOUS 04/19/20 13:50 Fluid WBC 232 /uL 04/19/20 13:50 Fluid RBC 660 /uL 04/19/20 13:50 Fluid Seg Neutrophils 14 % 04/19/20 13:50 Fluid Lymphocytes 86 % 04/19/20 13:50 Fluid Monocytes 0 % 04/19/20 13:50 Fluid Eosinophils 0 % 04/19/20 13:50 Fluid Basophils 0 % 04/19/20 13:50 Impressions: Head MRI 04/19/20 00:00 IMPRESSION: NORMAL MRI OF THE BRAIN WITHOUT AND WITH INTRAVENOUS GADOLINIUM CONTRAST. No metastases. EVIDENCE OF ACUTE STROKE: NO. Paracentesis Ultrasound 04/19/20 00:00 IMPRESSION: Successful ultrasound-guided paracentesis. KUB X-Ray 04/19/20 00:03 IMPRESSION: Nonspecific bowel gas pattern. A few nondilated air-filled loops of small bowel may reflect mild ileus. Questionable right renal calculi. copyright 2011 [employer]- All Rights Reserved Abdomen/Pelvis CT 04/19/20 01:27 IMPRESSION: The liver has a heterogeneous appearance with suggestion of multiple masses possibly present. Further evaluation with postcontrast imaging is recommended. There are multiple nodules within the lung bases which may represent evidence of metastatic disease. There is a moderate amount of free intraperitoneal fluid suggestive of ascites. Bilateral renal calcifications are present. Plan Time Spent: Greater than 30 Minutes Stroke Is this a Stroke Patient?: No Acute Heart Failure - Is this a Heart Failure Patient?: No
[2020-04-22] MEDS: RINGERS SOLUTION,LACTATED 1,000 ML IV PRN (19:29)
[2020-04-23] MEDS: LACTULOSE SYRUP 20 GM/30 ML UDCUP PO SCH ×3 (09:39→17:46)
--- NOTE | 2020-04-23 13:29 | Progress Note ---
Provider Note Provider Note: Patient seen and examined by me, vital signs and previous labs reviewed. No significant change in physical exam findings compared to yesterday Discharged home on hospice. Patient has no specific complaints today.
[2020-04-23 16:37] VITALS: BP 118/55
== END 2020-04-23 17:45 | disposition hospice, home (50) | DRG 435 ==
LOC: ER 23:04 → EH 04-19 03:29 → 4N 04-19 04:54
PROVIDERS: ADMIT Family Medicine; ATTEND Internal Medicine
PROC: 0W9G3ZX Drainage of Peritoneal Cavity, Percutaneous Approach, Diagnostic (ICD-10-PCS; principal; 2020-04-19)
DX: C22.0 Liver cell carcinoma (principal); G93.41 Metabolic encephalopathy; K72.00 Acute and subacute hepatic failure without coma; C78.00 Secondary malignant neoplasm of unspecified lung; R18.0 Malignant ascites; E80.6 Other disorders of bilirubin metabolism; G57.91 Unspecified mononeuropathy of right lower limb; B91 Sequelae of poliomyelitis; Z66 Do not resuscitate
CPT/HCPCS: 36415; 49083; 70553; 74018; 74176; 80053; 82105; 82140; 82378; 82962; 83690; 85025; 85027; 85610; 85730; 87070; 87075; 87205; 89050; 93005; 93010; 96361; 96374; 99285; A9576; J1644; J2405; J7030; J7120